=== PATIENT | female | born 1970 | race Caucasian/White ===

== ENCOUNTER 2022-10-25 11:55 | Emergency (ER) | payer OTHER ==
[2022-10-25 12:18] VITALS: BP 143/90; PULSE 75; RESP 20; TEMP 98
[2022-10-25] MEDS ORDERED: SODIUM CHLORIDE 0.9% 1,000 ML IV STA (12:22)
[2022-10-25] MEDS ORDERED: ONDANSETRON 4 MG/2 ML VIAL IVP STA (12:30)
[2022-10-25] MEDS ORDERED: diphenhydrAMINE 50 MG/ML 1 ML VIAL IVP STA (12:30)
[2022-10-25] MEDS ORDERED: DEXAMETHASONE SOD PHOSPHATE 10 MG/ML 1 ML VIAL IVP STA (12:30)
--- NOTE | 2022-10-25 13:06 | CT ---
EXAMINATION TYPE: CT brain wo con DATE OF EXAM: 10/25/2022 COMPARISON: None available at this location INDICATION: headache DLP: 1098.4 mGycm, Automated exposure control for dose reduction was used. CONTRAST: None CT of the brain is performed utilizing 3 mm thick sections through the posterior fossa and 3 mm thick sections through the remaining calvarium. Study is performed within 24 hours of arrival to the hosp [facility]. No abnormal hyperdensity is present to suggest an acute intracranial hemorrhage. No mass lesion is evident. No acute infarcts are evident. Ventricles and sulci are appropriate for the patient age. Paranasal sinuses and mastoid air cells within the [id number] are clear. Metallic artifact is present within the left [place] region compatible with a aneurysm clip. This causes some limitation during portions of the evaluation. IMPRESSIONS: 1. No acute intracranial process. 2. Aneurysm clip.
[2022-10-25 13:19] LABS: Basophils # (A) 0.1 k/uL (0-0.2); Basophils % (A) 1 %; Eosinophils # (A) 0.2 k/uL (0-0.7); Eosinophils % (A) 4 %; HCT 40.8 % (34.0-46.0); Lymphocytes # (A) 1.3 k/uL (1.0-4.8); Lymphocytes % (A) 36 %; MCH 30.9 pg (25.0-35.0); MCHC 31.7 g/dL (31.0-37.0); MCV 97.4 fL (80.0-100.0); Mean Platelet Volume 7.7; Monocytes # (A) 0.2 k/uL (0-1.0); Monocytes % (A) 5 %; Neutrophils # (A) 1.8 k/uL (1.3-7.7); Neutrophils % (A) 51 %; Platelet Count 204 k/uL (150-450); RBC 4.19 m/uL (3.80-5.40); RDW 13.1 % (11.5-15.5); WBC 3.5 k/uL (3.8-10.6)
[2022-10-25 13:20] LABS: Appearance,Urine Clear (Clear); Bilirubin,Urine Negative (Negative); Blood,Urine Negative (Negative); Color,Urine Yellow; Glucose,Urine (UA) Negative (Negative); Ketones,Urine Negative (Negative); Leukocyte Esterase,Urine Negative (Negative); Nitrite,Urine Negative (Negative); PH, Urine 6.5 (5.0-8.0); Protein,Urine Negative (Negative); Specific Gravity,Urine 1.015 (1.001-1.035); Urobilinogen,Urine <2.0 mg/dL (<2.0)
[2022-10-25] MEDS ORDERED: KETOROLAC 15 MG/ML 1 ML VIAL IVP STA (13:20)
--- NOTE | 2022-10-25 13:25 | ED ---
Headache HPI - General Chief Complaint: Headache Stated Complaint: high blood pressure Time Seen by Provider: 10/25/22 12:21 Mode of arrival: ambulatory Limitations: no limitations - History of Present Illness Initial Comments: Patient is a 52-year-old female who presents to the emergency department for headache. Patient has history of migraines states this feels more intense. It is a generalized pain which is worse behind her eyes. She has not taken any pain medication yet. Patient denies eye pain, blurry vision, double vision. Patient became worried when her blood pressure was higher than usual because she has history of aneurysm with clipping in 2017. Patient has history of hypertension currently on metoprolol states her blood pressure is normally in the 110s/70s and today was in the 150s/90s. Patient does have some nausea which she thinks is related to kidney stone as she started to develop back pain this morning on the right back typical of her kidney stone pain. No injury. No saddle anesthesia, leg weakness. Patient has history of recurrent kidney stones. She denies vomiting. Denies fever, chills, abdominal pain, burning with urination. Patient reports chronic hematuria. She follows with urology at [facility]. - Related Data Home Medications Medication Instructions Recorded Confirmed ARIPiprazole [Abilify] 10 mg PO DAILY 10/25/22 10/25/22 Aspirin EC [Ecotrin] 325 mg PO DAILY 10/25/22 10/25/22 Gabapentin [Neurontin] 300 mg PO TID PRN 10/25/22 10/25/22 Iron 27mg 1 tab PO BID 10/25/22 10/25/22 Kidney Cap(Unknown) 2 cap PO BID 10/25/22 10/25/22 Magnesium Oxide [Magnesium] 500 mg PO DAILY 10/25/22 10/25/22 Metoprolol Succinate (ER) [Toprol 50 mg PO DAILY 10/25/22 10/25/22 Xl] Multivitamins, Thera [Multivitamin 1 tab PO DAILY 10/25/22 10/25/22 (formulary)] Nitroglycerin Sl Tabs [Nitrostat] 0.4 mg SL Q5M PRN 10/25/22 10/25/22 Pantoprazole [Protonix] 40 mg PO DAILY 10/25/22 10/25/22 Topiramate [Topamax] 100 mg PO BID 10/25/22 10/25/22 Venlafaxine HCl [Effexor XR] 75 mg PO DAILY 10/25/22 10/25/22 Venlafaxine HCl [Effexor XR] 150 mg PO DAILY 10/25/22 10/25/22 calcium polycarbophiL [Fiber-Lax] 625 mg PO DAILY 10/25/22 10/25/22 hydrOXYzine HCL [Atarax] 25 mg PO QID PRN 10/25/22 10/25/22 Previous Rx's Medication Instructions Recorded Ibuprofen [Motrin] 800 mg PO Q8HR PRN #30 tab 10/25/22 Lidocaine 5% Patch [Lidoderm 5% 1 patch TOPICAL DAILY PRN #7 patch 10/25/22 Patch] Ondansetron Odt [Zofran Odt] 4 mg PO Q8HR PRN #10 tab 10/25/22 Allergies Allergy/AdvReac Type Severity Reaction Status Date / Time metoclopramide [From Reglan] Allergy stiff legs Verified 10/25/22 13:38 and lower ext shakes Review of Systems ROS Statement: Those systems with pertinent positive or pertinent negative responses have been documented in the HPI. ROS Other: All systems not noted in ROS Statement are negative. Past Medical History Past Medical History: Coronary Artery Disease (CAD) Additional Past Medical History / Comment(s): Brain aneurysm, multiple kidney stones History of Any Multi-Drug Resistant Organisms: None Reported Past Surgical History: Section, Cholecystectomy, Hysterectomy Additional Past Surgical History / Comment(s): multiple brain colis, loop cardiac recorder, lithotripsy Past Psychological History: Anxiety Smoking Status: Never smoker Past Alcohol Use History: None Reported Past Drug Use History: Marijuana General Exam Limitations: no limitations General appearance: alert, in no apparent distress Head exam: Present: atraumatic, normocephalic, normal inspection Eye exam: Present: normal appearance, PERRL, EOMI. Absent: scleral icterus, conjunctival injection, periorbital swelling ENT exam: Present: normal oropharynx Respiratory exam: Present: normal lung sounds bilaterally. Absent: respiratory distress, wheezes, rales, rhonchi, stridor Cardiovascular Exam: Present: regular rate, normal rhythm, normal heart sounds. Absent: systolic murmur, diastolic murmur, rubs, gallop, clicks GI/Abdominal exam: Present: soft, normal bowel sounds. Absent: distended, tenderness, guarding, rebound, rigid Back exam: Present: normal inspection, full ROM, paraspinal tenderness (right lumbar). Absent: CVA tenderness (R), CVA tenderness (L), vertebral tenderness Neurological exam: Present: alert, oriented X3, CN II-XII intact Psychiatric exam: Present: normal affect, normal mood Skin exam: Present: warm, dry, intact, normal color. Absent: rash Course Vital Signs 10/25/22 12:12 Temperature 98.0 F Pulse Rate 75 Respiratory 20 Rate Blood Pressure 143/90 O2 Sat by Pulse 97 Oximetry Medical Decision Making - Medical Decision Making Was pt. sent in by a medical professional or institution (, PA, [employer], urgent care, hospital, or penitentiary...) When possible be specific @ -No Did you speak to anyone other than the patient for history (EMS, parent, family, police, friend...)? What history was obtained from this source @ -No Did you review nursing and triage notes (agree or disagree)? Why? @ -I reviewed and agree with nursing and triage notes Were old charts reviewed (outside hosp., previous admission, EMS record, old EKG, old radiological studies, urgent care reports/EKG's, penitentiary records)? Report findings @ -No old charts were reviewed Differential Diagnosis (chest pain, altered mental status, abdominal pain women, abdominal pain men, vaginal bleeding, weakness, fever, dyspnea, syncope, headache, dizziness, GI bleed, back pain, seizure, CVA, palpatations, mental health)? @ -Differential Headache: Migraine, tension, cluster, carbon monoxide, central venous thrombosis, pension karma temporal arteritis, acute closure glaucoma, intercranial hemorrhage, mastoiditis, sinusitis, head injury, this is not meant to be an all-inclusive list. EKG interpreted by me (3pts min.). @ -As above X-rays interpreted by me (1pt min.). @ -None done CT interpreted by me (1pt min.). @ -Yes, CT of the brain is negative for acute process aneurysm clippings arm plates. CT of the abdomen and pelvis without contrast shows multiple bilateral nonobstructing renal stones measuring 0.2-0.3 cm. There is a nodular density in the posterior right labia approximately 3.62.3 cm. It does not appear to be a Rohit's cyst according to CT U/S interpreted by me (1pt. min.). @ -None done What testing was considered but not performed or refused? (CT, X-rays, U/S, labs)? Why? @ -None What meds were considered but not given or refused? Why? @ -None Did you discuss the management of the patient with other professionals (professionals i.e. DrChapincito, PA, [employer], lab, RT, psych nurse, professor of social work, construction pit worker, teacher, recruitment officer, case resource manager)? Give summary @ -No Was smoking cessation discussed for >3mins.? @ -No Was critical care preformed (if so, how long)? @ -No Were there social determinants of health that impacted care today? How? (Homelessness, low income, unemployed, alcoholism, drug addiction, transportation, low edu. Level, literacy, decrease access to med. care, long-term, rehab)? @ -No Was there de-escalation of care discussed even if they declined (Discuss DNR or withdrawal of care, Hospice)? DNR status @ -No What co-morbidities impacted this encounter? (DM, HTN, Smoking, COPD, CAD, C ancer, CVA, ARF, Chemo, Hep., AIDS, mental health diagnosis, sleep apnea, morbid obesity)? @ -None Was patient admitted / discharged? Hospital course, mention meds given and route, prescriptions, significant lab abnormalities, going to OR and other pertinent info. @ -Patient presenting with multiple complaints. Patient has migraine with h istory of aneurysm with clipping. Blood pressure is 143/90. No fever, vomiting, weakness. CT of the brain is negative for acute process. Patient also has right back pain. No injury. No symptoms or signs of cauda equina. It is tender to palpation. There is no leukocytosis, normal kidney function, no hematuria. CT shows bilateral nonobstructing stones. I suspect back pain as MSK in nature. Also discussed the findings on CT including labia nodule. Patient states she has been told she had this in the past however her mom so she never followed up. The nodule is not painful. It is growing in size. Patient has history of hysterectomy. No cervical uterine or vaginal cancers in the family. Patient is referred to gynecology today for further evaluation and workup. new problem with uncertain prognosis? @ -No Drug Therapy requiring intensive monitoring for toxicity (Heparin, Nitro, Insulin, Cardizem)? @ -No Were any procedures done? @ -No] Diagnosis/symptom? @ -back pain, migraine, Acute, or Chronic, or Acute on Chronic? @ -acute Uncomplicated (without systemic symptoms) or Complicated (systemic symptoms)? @ uncomplicated Side effects of treatment? @ -[No] Exacerbation, Progression, or Severe Exacerbation? @ -[No] Poses a threat to life or bodily function? How? (Chest pain, [place], [place], pneumonia, PE, COPD, DKA, ARF, appy, cholecystitis, CVA, Diverticulitis, Homicidal, Suicidal, threat to staff... and all critical care pts) @ -[No] Dr. Reeves is my attending - Lab Data Result diagrams: 10/25/22 12:59 10/25/22 12:59 Lab Results 10/25/22 10/25/22 10/25/22 Range/Units 12:59 12:59 12:59 WBC 3.5 L (3.8-10.6) k/uL RBC 4.19 (3.80-5.40) m/uL Hgb 13.0 (11.4-16.0) gm/dL Hct 40.8 (34.0-46.0) % MCV 97.4 (80.0-100.0) fL MCH 30.9 (25.0-35.0) pg MCHC 31.7 (31.0-37.0) g/dL RDW 13.1 (11.5-15.5) % Plt Count 204 (150-450) k/uL MPV 7.7 Neutrophils % 51 % Lymphocytes % 36 % Monocytes % 5 % Eosinophils % 4 % Basophils % 1 % Neutrophils # 1.8 (1.3-7.7) k/uL Lymphocytes # 1.3 (1.0-4.8) k/uL Monocytes # 0.2 (0-1.0) k/uL Eosinophils # 0.2 (0-0.7) k/uL Basophils # 0.1 (0-0.2) k/uL Sodium 142 (137-145) mmol/L Potassium 3.9 (3.5-5.1) mmol/L Chloride 110 H (98-107) mmol/L Carbon Dioxide 23 (22-30) mmol/L Anion Gap 9 mmol/L BUN 16 (7-17) mg/dL Creatinine 0.96 (0.52-1.04) mg/dL Est GFR (CKD-EPI)AfAm 79 (>60 ml/min/1.73 sqM) Est GFR (CKD-EPI)NonAf 69 (>60 ml/min/1.73 sqM) Glucose 84 (74-99) mg/dL Calcium 9.0 (8.4-10.2) mg/dL Total Bilirubin 0.4 (0.2-1.3) mg/dL AST 23 (14-36) U/L ALT 18 (4-34) U/L Alkaline Phosphatase 68 (38-126) U/L Total Protein 7.2 (6.3-8.2) g/dL Albumin 4.3 (3.5-5.0) g/dL Urine Color Yellow Urine Appearance Clear (Clear) Urine pH 6.5 (5.0-8.0) Ur Specific [place] 1.015 (1.001-1.035) Urine Protein Negative (Negative) Urine Glucose (UA) Negative (Negative) Urine Ketones Negative (Negative) Urine Blood Negative (Negative) Urine Nitrite Negative (Negative) Urine Bilirubin Negative (Negative) Urine Urobilinogen <2.0 (<2.0) mg/dL Ur Leukocyte Esterase Negative (Negative) Disposition Clinical Impression: Migraine, Back pain, Labial lesion Disposition: HOME SELF-CARE Condition: Good Instructions (If sedation given, give patient instructions): Acute Headache (ED), Back Pain (ED) Additional Instructions: Take medication as directed. Please follow-up with gynecology and primary care provider in one to 2 days. Return to the emergency department if you experience new, concerning, or worsening symptoms. Prescriptions: Lidocaine 5% Patch [Lidoderm 5% Patch] 1 patch TOPICAL DAILY PRN #7 patch PRN Reason: Pain Ibuprofen [Motrin] 800 mg PO Q8HR PRN #30 tab PRN Reason: Pain Ondansetron Odt [Zofran Odt] 4 mg PO Q8HR PRN #10 tab PRN Reason: Nausea Is patient prescribed a controlled substance at d/c from ED?: No Referrals: Stan Lang MD [Primary Care Provider] - 1-2 days Meghan Austin MD [STAFF PHYSICIAN] - 1-2 days
[2022-10-25 13:27] LABS: Albumin 4.3 g/dL (3.5-5.0); Potassium 3.9 mmol/L (3.5-5.1); Total Bilirubin 0.4 mg/dL (0.2-1.3); Total Protein 7.2 g/dL (6.3-8.2)
--- NOTE | 2022-10-25 13:34 | CT ---
EXAMINATION TYPE: CT abdomen pelvis wo con DATE OF EXAM: 10/25/2022 COMPARISON: None INDICATION: right flank pain DLP: 1463 mGycm, Automated exposure control for dose reduction was used. CONTRAST: 0 mL of Isovue 300. Study performed without Oral Contrast TECHNIQUE: Axial images were obtained from above the diaphragm to the pubic rami in the axial plane a t 5 mm thick sections. Reconstructed images are reviewed on the computer in the coronal plane. FINDINGS: Limited CT sections are obtained the lung bases. The lung bases are clear. CT ABDOMEN: Liver: Normal Spleen: Normal Pancreas: Normal Adrenal glands: The adrenal glands are normal. Gallbladder: Surgically absent Kidneys: Multiple nonobstructing renal stones are present bilaterally. Larger stones include several 0.3 cm calcifications within the posterior cortex left kidney. Cortical medullary junction stones are included 0.3 cm mid left kidney 0.2 cm superior pole right kidney and 20.2 cm posterior lateral mid to lower right kidney calcifications. No hydronephrosis or hydroureter is evident. Aorta: Normal Inferior vena cava: Normal. CT PELVIS: Fecal debris is within the colon. The study is without oral contrast limiting bowel evaluation. Appendix: Not identified. No dilated tubular structure or inflammatory changes evident. Urinary bladder: Normal. Genitourinary structures: Uterus and ovaries are not identified. There is a 3.6 x 2.3 cm posterior ri ght labial nodular type density. Pelvic examination is recommended. This does not appear to be a Gart ner's cyst with internal Hounsfield unit measurement of 49. Osseous structures: No suspicious lytic or sclerotic lesions. IMPRESSIONS: 1. Multiple bilateral nonobstructing renal stones measuring 0.2 to 0.3 cm 2. Nodular density posterior right labia. Additional workup is recommended.
[2022-10-25] MEDS ORDERED: LIDOCAINE 5% PATCH TOPICAL STA (13:39)
[2022-10-25] MEDS ORDERED: ACETAMINOPHEN TAB 500 MG TAB PO STA (13:40)
== END 2022-10-25 14:04 | disposition home or self-care (01) ==
LOC: EC 11:55
DX: G43.909 Migraine, unspecified, not intractable, without status migrainosus (principal); M54.9 Dorsalgia, unspecified; N90.89 Other specified noninflammatory disorders of vulva and perineum; I25.10 Atherosclerotic heart disease of native coronary artery without angina pectoris; F41.9 Anxiety disorder, unspecified; F12.90 Cannabis use, unspecified, uncomplicated; Z79.1 Long term (current) use of non-steroidal anti-inflammatories (NSAID); Z79.82 Long term (current) use of aspirin; Z79.899 Other long term (current) drug therapy; Z88.8 Allergy status to other drugs, medicaments and biological substances
CPT/HCPCS: 36415; 80053; 85025; 81003; 70450; 74176; 99284; 96374; 96375 ×3; 96361; J1200; J1100; J2405; J1885